=== PATIENT | male | born 1960 | race Caucasian/White ===

== ENCOUNTER 2017-12-08 01:37 | Emergency (ER) | payer OTHER ==
[~2017-12-08] VITALS: Ht 172.7 cm; Wt 77.9 kg
[2017-12-08 01:43] VITALS: BP 128/87; PULSE 82; RESP 18; TEMP 97.6; O2SAT 99
[2017-12-08 02:30] VITALS: BP 128/80; PULSE 82; RESP 20; O2SAT 99
[2017-12-08] MEDS ORDERED: LIDOCAINE HCL 1% PF 30 ML VIAL INFIL ONE (03:45)
[2017-12-08 04:30] VITALS: BP 116/68; PULSE 88; RESP 20; O2SAT 97
[2017-12-08] MEDS ORDERED: SODIUM CHLOR 0.9% 1000 ML INJ 1,000 ML IV ONE (04:45)
[2017-12-08] MEDS ORDERED: MORPHINE SULFATE 2 MG/ML INJ IV PUSH ONE (04:45)
[2017-12-08] MEDS ORDERED: ceFAZolin 2 GM PREMIX 50 ML IV ONE (04:45)
[2017-12-08] MEDS ORDERED: TETANUS/DIPHTHERIA TOXOID ADULT 0.5 ML VIAL IM ONE (04:45)
[2017-12-08] MEDS ORDERED: ONDANSETRON HCL 4 MG/2 ML VIAL IV PUSH ONE (04:45)
--- NOTE | 2017-12-08 06:13 | RADRPT ---
EXAM DATE/TIME: 12/08/2017 05:50 [facility] COMPARISON: No previous studies available for comparison. INDICATIONS : Trauma, fall off top bunk of bed. RADIATION DOSE: 65.52 CTDIvol (mGy) MEDICAL HISTORY : Non-responsive. SURGICAL HISTORY : None. ENCOUNTER: Initial ACUITY: 1 day PAIN SCALE: 5/10 LOCATION: cranial TECHNIQUE: Multiple contiguous axial images were obtained of the head. Using automated exposure control and adj ustment of the mA and/or kV according to patient size, radiation dose was kept as low as reasonably a chievable to obtain optimal diagnostic quality images. DICOM format image data is available electro nically for review and comparison. FINDINGS: CEREBRUM: The ventricles are normal for age. No evidence of midline shift, mass lesion, hemorrhage or acute in farction. No extra-axial fluid collections are seen. POSTERIOR FOSSA: The cerebellum and brainstem are intact. The 4th ventricle is midline. The cerebellopontine angle i s unremarkable. EXTRACRANIAL: The visualized portion of the orbits is intact. Left high frontal scalp marlene. SKULL: The calvaria is intact. No evidence of skull fracture. CONCLUSION: No bleed or other acute intracranial abnormality. Scalp laceration repair. Leonardo Beauchamp MD on December 08, 2017 at 6:11 Board Certified Radiologist. This report was verified electronically.
--- NOTE | 2017-12-08 06:17 | RADRPT ---
EXAM DATE/TIME: 12/08/2017 05:50 [facility] COMPARISON: No previous studies available for comparison. INDICATIONS : Trauma, fall off top bunk of bed. RADIATION DOSE: 26.25 CTDIvol (mGy) MEDICAL HISTORY : None SURGICAL HISTORY : None. ENCOUNTER: Initial ACUITY: 1 day PAIN SCALE: 5/10 LOCATION: neck TECHNIQUE: Volumetric scanning of the cervical spine was performed. Multiplanar reconstructions in the sagittal, coronal and oblique axial planes were performed. Using automated exposure control and adjustment o f the mA and/or kV according to patient size, radiation dose was kept as low as reasonably achievable to obtain optimal diagnostic quality images. DICOM format image data is available electronically f or review and comparison. FINDINGS: VERTEBRAE: Normal vertebral body height. ALIGNMENT: No evidence of subluxation. Mild disc space narrowing and mild bilateral uncovertebral and facet osteoarthritis seen at essential ly all levels. There is a large, age-indeterminate right paracentral disc protrusion/extrusion at C6/ C7. Small, broad posterior protrusions noted at C4/C5 and C5/C6. CONCLUSION: 1. No fracture or subluxation of the cervical spine. 2. Large right paracentral disc fragment at C6/C7, age-indeterminate. Leonardo Beauchamp MD on December 08, 2017 at 6:14 Board Certified Radiologist. This report was verified electronically.
[2017-12-08] MEDS ORDERED: CEPH-460 PO (06:47)
[2017-12-08] MEDS ORDERED: ZOFR4TAB3 SL (06:47)
[2017-12-08] MEDS ORDERED: PERC5TAB12 PO (06:47)
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
[2017-12-08 06:55] VITALS: BP 112/68; PULSE 90; RESP 18; O2SAT 98
== END 2017-12-08 07:01 | disposition home or self-care (01) ==
LOC: PHED 01:37
DX: S01.01XA Laceration without foreign body of scalp, initial encounter (principal); S01.81XA Laceration without foreign body of other part of head, initial encounter; R51 Headache; S09.90XA Unspecified injury of head, initial encounter; M50.90 Cervical disc disorder, unspecified, unspecified cervical region; W06.XXXA Fall from bed, initial encounter; Y93.84 Activity, sleeping; Y92.818 Other transport vehicle as the place of occurrence of the external cause; Z23 Encounter for immunization
CPT/HCPCS: 12054; 70450; 72125; 90471; 90714; 96374; 96375; 99284; J0690; J2270; J2405; J7030